=== PATIENT | male | born 1955 | race Caucasian/White ===

== ENCOUNTER 2023-10-22 14:25 | Inpatient (IN) | payer MEDICARE, OTHER, SELFPAY ==
[2023-10-22] VITALS (41 sets, daily range): BP systolic 100–152; BP diastolic 68–95; BMI 32.0
[2023-10-22 12:57] LABS: Glucose - Point of Care 132 mg/dl (70-99)
--- NOTE | 2023-10-22 13:10 | ED.GENMED ---
History of Present Illness
General
Chief Complaint: Extremity Pain (non-traumatic)
Source: patient and spouse
Exam Limitations: none
Time Seen by Provider: 10/22/23 13:03
Nursing documentation reviewed up to this point in time: agreed with
Travel History
Have you had any contact with someone who has COVID-19?: No
Do you have any symptoms of coronavirus? Fever > 100 degrees, chills, cough, shortness of breath, sore throat, loss of taste or smell, muscle aches, or headache?: No
History of Present Illness
History of Present Illness:
68-year-old male presents emergency department complaining of right arm heaviness, and difficulty coordinating his right arm that began at 11:45 AM today.
If applicable-neuro sx onset
Onset of symptoms known: Yes
Date of onset of symptoms: 10/22/23
Past History
Past History
ED Past Medical History: HTN, Hypercholesterolemia, Other (JUANITA) and Other (migraines)
Social History
Tobacco: Non-smoker
Personal:
Living: with family
Employment: Employed
Review of Systems
Review of Systems
Allergies reviewed?: Yes
All Other Systems: Not applicable
Constitutional: Reports no symptoms
EENT: Reports no symptoms
Respiratory: Reports no symptoms
Cardiac: Reports no symptoms
ABD/GI: Reports no symptoms
: Reports no symptoms
Musculoskeletal: Reports no symptoms
Skin: Reports no symptoms
Neurological: Reports weakness
Endocrine: Reports no symptoms
Hematologic/Lymphatic: Reports no symptoms
Psychiatric: Reports no symptoms
Phy Exam
Physical Exam
Physical Exam:
Physical Exam
General: no apparent distress, not acutely ill
Neck: supple. no meningeal signs. normal posterior pharynx
Heart: s1/s2 regular rate and rhythm, no murmur. equal radial
pulses.
HEENT: Pupils equal round reactive to light, EOMI
Lungs: no acute respiratory distress. clear bilaterally
Abdomen: normal bowel sounds. not tender. no CVAT
Neuro: alert and oriented. Right arm weakness, 4 out of 5 muscle strength. Cranial nerves II through XII intact
Skin: no rash
Psychiatric: well kept. interactive and cooperative
Extremities: no edema. no calf tenderness. negative homans. good distal pulses
Scores
NIH Stroke Score
Level of Consciousness: 0 - Alert
LOC Questions: 0-Answers both correctly
LOC Commands: 0-Performs both correctly
Best Horizontal Gaze: 0-Normal
Visual Peterson: 0=Normal, no visual loss
Facial Palsy: 0=Normal, symmetrical
Motor - Right Arm: 1=Drift < 10 seconds
Motor - Left Arm: 0=No drift 10 seconds
Motor - Right Le-No drift 5 seconds
Motor - Left Le-No drift 5 seconds
Limb Ataxia: 0-Absent
Sensation: 0-Normal
Best Language: 0-No aphasia
Dysarthria: 0-Normal
Extinction and Inattention: 0-No abnormality
Total Score:: 1
Course
Orders/Labs/Results
Orders:
Orders
10/22/23 13:05
CT Head W/o Cont STROKE ALERT Urgent
Reason For Exam: right arm heaviness
10/22/23 13:08
Cardiac Monitoring- Treatment ONCE
IV Insert/Care/Rem.- Treatment PRN
10/22/23 13:10
Electrocardiogram (*1) Stat
Reason for Study: Other
Other Reason for Exam: neuro symptoms
EKG- Treatment ONCE
10/22/23 13:11
CT Head/Neck Ang STROKE ALERT Urgent
Comment:
Reason For Exam: right arm weakness
10/22/23 13:27
Complete Blood Count/With Diff Urgent
Comprehensive Metabolic Panel Urgent
PTT Urgent
Prothrombin Time Urgent
10/22/23 13:41
Tenecteplase [Tnkase] 25 mg Syringe [Syringe Non-Pump] 0 ml IV NOW
Provider explained risk/benefits to patient &/or caregiver?: Yes
Blood pressure: 138/84
10/22/23 13:43
Tenecteplase [Tnkase] 25 mg Syringe [Syringe Non-Pump] 0 ml IV NOW
Abnormal Lab Results
10/22/23 10/22/23
12:56 13:27
BUN 24 H mg/dl
(9-20)
Glucose 126 H mg/dl
(70-99)
POC Glucose 132 H mg/dl
(70-99)
10/22/23 13:27
10/22/23 13:27
Vital Signs
Initial and Last Documented VS:
Initial Vital Signs
Temp Pulse Resp BP Pulse Ox
97.8 F 68 16 152/85 97
10/22/23 12:55 10/22/23 12:55 10/22/23 12:55 10/22/23 12:55 10/22/23 12:55
Last Documented Vital Signs
Temp Pulse Resp BP Pulse Ox
97.8 F 74 15 138/84 99
10/22/23 12:55 10/22/23 13:32 10/22/23 13:32 10/22/23 13:32 10/22/23 13:32
MDM/Problems Addressed
Differential Diagnosis Includes:
Intracranial hemorrhage, CVA
MDM/Problems Addressed:
68-year-old male with acute CVA, TNK ordered.
Chronic conditions affecting care: Other (Migraines)
Acute Exacerbation and/or Progression of Chronic Illness: Other (Migraines)
*Radiology
Radiology exam reviewed: radiology read reviewed (CT head no acute findings, cta nad)
*Pulse Oximetry
Patient hypoxic: no
*EKG
Interpreted by ED Provider?: Yes
EKG Intrepretation Date: 10/22/23
EKG Intrepretation Time: 07:18
Interpretation: abnormal
Comparison EKG: changes noted
Heart Rate: 71
Rate: normal
Rhythm: sinus
[place]: normal axis
Interval: normal interval
QRS Pattern: normal QRS
Ischemia: non-specific ST changes
*Nuclear Monitoring Technician Interpretation
Rate: normal
Interpretation: normal
Heart Rate: 70
Rhythm: sinus
*Critical Care Note
Total Time (30-74mins, 75-104mins- exclusive of procedures): 30
comment:
Critical care statement: A total of 30 minutes of critical care time was provided for this patient. This includes management of unstable vital signs, evaluation of the patient at bedside, reviewing the patient's pertinent medical records, discussion
with consultants, review of old EKGs and review of pertinent medical records. This time with separate from time utilized to perform the aforementioned documented procedures
Patient Management
Social determinants of health affecting care: Living situation
Discussion with other providers: Hospitalist and [employer] (neurology)
Escalation/DeEscalation of care consider admission/obs:
admit to ICU indicated
ED Attending Note
-
Portions of this chart may have been created with voice recognition software.� Occasional wrong word or��sound alike� substitutions may have occurred due to the inherent limitations of voice recognition software.
Discharge Plan
Departure
Patient Disposition: Admit
Date of Disposition: 10/22/23
Time of Disposition: 13:43
Admit to: ICU
Presentation/result/management discussed w/ accepting MD/DO: Hospitalist
Patient with high blood pressure during this ER visit?: Yes
Condition: Good
Discharge Problem:
Acute cerebrovascular accident (CVA)
Prescriptions:
No Action
multivitamin 1 EACH tablet
1 ea PO DAILY
levothyroxine 75 MCG tablet
75 mcg PO DAILY
pravastatin 10 MG tablet
10 mg PO DAILY
aspirin 81 MG tablet,chewable
81 mg PO DAILY
amlodipine-valsartan [Exforge] 1 EACH tablet
1 tab PO DAILY
bihkeqdgpzb-Q0-Wvqjxcfay serr [Osteo Bi-Flex (5-Loxin)] 1 EACH tablet
1 ea PO BID
Interventions
Interventions:
*Risk Screen - Suicide Last Done: 10/22/23 13:36
*General Assessment Last Done: 10/22/23 13:36
*Neglect/Abuse Screening Last Done: 10/22/23 13:36
*ED COVID-19 Vaccine History Last Done: 10/22/23 12:55
ED-Musculoskeletal Assessment Last Done: 10/22/23 13:36
ED-Peripheral Vascular Assessment Last Done: 10/22/23 13:39
ED-Skin Assessment Last Done: 10/22/23 13:36
--- NOTE | 2023-10-22 13:15 | CON.NEURO4 ---
Consultation - Neurology 4
-
CONSULTING PHYSICIAN: Carlos
REFERRING PHYSICIAN: Andrae
DICTATED BY: Carlos
DATE/TIME OF REQUEST: 10/22/23 1303
DATE/TIME OF CONSULTATION: 10/22/23 1311
Reason for Consultation: stroke alert
History of Present Illness:
68-year-old male recently retired from [employer] with a past medical history of hypertension anemia, JUANITA, migraine and peripheral neuropathy who presented as a stroke code after abrupt onset of right upper extremity heaviness at 1115 this
morning. He had been making coffee prior to the event and felt fine. Suddenly his right arm felt heavy and when he sat down to use his computer he was unable to type with his right hand. He feels that the dexterity in his right hand is off. He
denies any neck pain. No trauma to his neck. No clear events that would cause nerve compression prior to this. No prior history of stroke. Does have significant vascular risk factors in the form of hypertension, hyperlipidemia and JUANITA. He takes
aspirin usually but did not take his dose this morning. In the ED prior to my arrival he had right upper extremity drift which had resolved when I examined him and CAT scan. However, he continues to have significant issues with dexterity/right
upper extremity ataxia. He is right-handed and this is disabling. He was unable to type on a keyboard at bedside. He is agreeable with infusion of TNK. CTA showed no evidence of any large vessel occlusion for IAT. Clarified there is no h/o R
parietal lobe mass--listed in differential on HCT done in 2018 but clarified on MRI brain (11/13/17) that this was instead 'extensive nonenhancing white matter disease.� No evidence of acute infarct. No mass effect.� No abnormal enhancement.'
He states that he recently saw his eye doctor and discussed that he has had events consisting of strobe like changes in his vision in the bottom half of each eye recently concerning for possible aura with migraine. He denies any vision changes,
aura or migraine currently.
Past Medical History: htn, HLD, JUANITA,� migraines�with recent addition of visual aura, mild axonal sensory peripheral neuropathy per EMG done on 04/17/21
Family History:� noncontributory
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
Allergies
atorvastatin [From Lipitor] Allergy (Verified 11/12/17 12:20)
ELEVATED CPK LEVELS
simvastatin [From Zocor] Allergy (Verified 11/12/17 12:20)
ELEVATED CPK LEVELS
Sdaoyen-JOD-OuQ Reductase Inhibitor [Xwtzjpt-Ipk-Xjt Reductase Inhibitor] Allergy (Verified 11/12/17 12:20)
ELEVATED CPK LEVELS
Home Medications Table - record
Medication Instructions Recorded Confirmed
amlodipine 10 mg-valsartan 320 mg 1 tab PO DAILY 11/12/17 10/22/23
tablet (Exforge)
aspirin 81 mg chewable tablet 81 mg PO DAILY 11/12/17 10/22/23
glucosamine GBn-L1-Elkytpuwr 1 ea PO BID 11/12/17 10/22/23
mckenzie 1,500 mg-400 unit-100 mg
tablet (Osteo Bi-Flex (5-Loxin))
levothyroxine 75 mcg tablet 75 mcg PO DAILY 11/12/17 10/22/23
multivitamin 1 ea PO DAILY 11/12/17 10/22/23
pravastatin 10 mg tablet 10 mg PO DAILY 11/12/17 10/22/23
Review of Symptoms:
Patient denies any fever, headache, chest pain, shortness of breath, GI or symptoms.
�Per the HPI.�All systems are reviewed negative except above.
Vital Signs
Temp Pulse Resp BP Pulse Ox
97.8 F 68 16 152/85 97
10/22/23 12:55 10/22/23 12:55 10/22/23 12:55 10/22/23 12:55 10/22/23 12:55
Physical Exam:
The patient is afebrile, heart sounds S1 and S2 are regular, and chest is clear to auscultation bilaterally.
NIH Stroke Scale:
I performed the NIH stroke scale on the patient on 10/22/23 at 1315. The patient scored 1 points on the NIH stroke scale assessment, which were assigned as follows: 1 for ataxia in RUE
Neurologic Examination:
The patient is awake, alert and oriented x 3. He is able to follow commands and answer questions appropriately. There is no aphasia or dysarthria. On cranial nerve assessment, pupils are 3 mm bilateral, round and reactive to light and
accommodation. Visual steve are full. Extraocular movements are intact. Facial sensations are intact and bilaterally symmetrical, there is no facial asymmetry. Hearing is intact bilaterally to normal conversation volume. Tongue palate and uvula
are midline. Sternocleidomastoid strengths are full bilaterally. Motor strengths are 5/5 bilateral upper and lower extremities on medical research Tichnor scale. There is no drift or involuntary movement noted. Deep tendon reflexes are 2+ bilateral
upper and lower extremities and Babinski is absent bilaterally. Sensations of touch, temperature are intact and bilaterally symmetrical. There was no extinction noted on double simultaneous stimulation. Had significant impairment with rapid
alternating movements in the R hand only; +R hand ataxia. Unable to type on keyboard at bedside with right hand. No impairment in L hand. Heel to zayas intact in BLE.
Neuro Imaging:
HCT:
1. � Stable exam. No acute intracranial process.
2. � Mild volume loss. Mild to moderate leukoaraiosis.
CTA head/neck:
negative for any LVO
NECK CTA:
No dissection. No significant stenosis.
HEAD CTA:
No aneurysm. No filling defect or significant stenosis.
CUS from 12/18/19:
�
RIGHT CAROTID: No hemodynamically significant stenosis greater than 50%.
LEFT CAROTID: No hemodynamically significant stenosis greater than 50%.
Echo (11/09/22):
�Normal biventricular size and systolic function without regional wall motion
�abnormality.
�No significant valvular disease.
�Mildly dilated ascending aorta (3.8cm). No clear cardiac source for emboli.
Impression:
YANN WEBBER is a 68 year old M who has presented to the hospital with abrupt onset of R arm heaviness and diminished dexterity in the R hand that interferes with his ability to type. He initially had RUE drift which has resolved. He
continues to have diminished dexterity in his R hand. His symptoms are disabling, particularly as he is right handed.
Differentials for the patient's presentation include:
1. small L hemispheric acute ischemic stroke
2. spinal/peripheral nerve etiology/compression seems less likely given abrupt onset, lack of clear predisposing factors
3. complicated migraine; does have a history of migraine with visual aura but has never had other focal symptoms associated; currently denies any headache
Patient has the following risk factors for their symptoms: htn, HLD, JUANITA,� migraines, age
IV Tenecteplase/IAT candidacy: giving TNK, CTA negative for any LVO for IAT
Recommendations:
�-IV TNK administered per protocol. Risks discussed at length with patient and his at bedside and they are in agreement to give it.
- Patient admitted to medical ICU after IV TNK administration for frequent neuro checks and vital signs per protocol.
- The goal blood pressure for the first 24 hours s/p TNK administration is less than 180/105 mmHg.� After this time, goal is normotension.
-� MRI of the brain within 22-32 hours of TNK without contrast for localization of the stroke.�
- CTA head/neck--no LVO.
- Please hold all antiplatelets for the first 24 hours s/p TNK. Patient's ASA can be resumed if MRI brain shows no hemorrhagic conversion
- Check hemoglobin A1C.�Goal blood glucose levels are less than 180 mg/dL.
- Continue pravastatin; has other statins listede as an allergy.� Check LDL.� Goal LDL after stroke is <70.
- Check an echocardiogram.
- Please check a noncontrast CT scan of the head 24 hours after TNK administration for a possible hemorrhagic conversion of the stroke/ICH.� This does not need to be done if MRI brain can be timed for this time period.
- Speech language pathology and rehabilitations evaluations today, PT/OT evaluations in 24 hours post TNK administration. OK for out of bed to commode or chair with assistance prior to 24 hours.�
- DVT prophylaxis only with sequential compression devices over the 24 hours after TNK administration. Patient can be started on Lovenox subcutaneous for DVT prophylaxis after the 24 hour qi.
- Rest of the management per the primary team
Discussed patient care with: patient, patient's , nursing, Dr. Abebe
Critical care time 70 minutes
[2023-10-22 13:37] LABS: % Basophils 0.9 % (0-2); % Eosinophils 3.2 % (0-6); % Immature Granulocytes 0.1 % (0-0.5); % Lymphocytes 35.6 % (20.5-51.1); % Monocytes 8.4 % (1.7-9.3); % Neutrophils 51.8 % (42.2-75.2); Absolute Basophils 0.1 10^3/uL (0-0.2); Absolute Eosinophils 0.2 10^3/uL (0-0.7); Absolute Lymphocytes 2.6 10^3/uL (1.2-3.4); Absolute Monocytes 0.6 10^3/uL (0.1-0.6); Absolute Neutrophils 3.8 10^3/uL (1.4-6.5); Hematocrit 43.4 % (39.0-52.0); Mean Corp Hgb Conc. 34.6 g/dL (33.0-37.0); Mean Corpuscular Hgb 28.8 pg (27.0-31.0); Mean Corpuscular Volume 83.5 fL (80.0-94.0); Mean Platelet Volume 9.9 fL (7.4-10.4); Nucleated Red Blood Cells % 0 % (-); Platelet Count 240 10^3/uL (130-400); Red Cell Dist. Width 13.6 % (11.5-14.5); White Blood Cell Count 7.4 10^3/uL (4.8-10.8)
[2023-10-22 13:48] LABS: APTT 28.3 Sec (23.4-35.0)
[2023-10-22 13:49] LABS: ALT (SGPT) 24 U/L (0-50); AST (SGOT) 23 U/L (17-59); Albumin 4.1 g/dl (3.5-5.0); Alkaline Phosphatase 62 U/L (38-126); Blood Urea Nitrogen 24 mg/dl (9-20); Calcium 9.8 mg/dl (8.4-10.2); Carbon Dioxide 25 mmol/L (22-30); Chloride 105 mmol/L (98-107); Estimated Creatinine Clearance 109 ml/min; Glucose 126 mg/dl (70-99); Sodium 142 mmol/L (135-145); Total Bilirubin 0.5 mg/dl (0.2-1.3); Total Protein 6.8 g/dl (6.3-8.2); eGFR > 60.00
[2023-10-22] MEDS: TNKASE 5 MG IV (13:50)
--- NOTE | 2023-10-22 13:52 | HPS.HSE ---
Family Physician
-
Family Physician:
Chief Complaint
-
R arm weakness
History of Present Illness
HPI: 68-year-old male, PMH HTN, HLD, JUANITA on CPAP, migraines; p/w right arm heaviness/weakness and difficulty with coordination that started acutely at 11:45 AM on DOA.
Medical History
Past Medical History
Past Medical History: Reports Other
Additional Past Medical History:
HTN
HLD
JUANITA on CPAP
migraines
Past Surgical History: Reports Other
Additional Past Surgical History:
Distant history of left inguinal hernia surgery
Social History
Tobacco: Non-smoker
Alcohol: Occasional
Personal:
Living: With Family
Family History
Family History: Not pertinent
Allergies / Home Medications
Allergies reflects when Allergies were last updated in [facility].
Home Medications with original date entered in [facility]
Allergy/Medication List:
Allergies
Allergy/AdvReac Type Severity Reaction Status Date / Time
atorvastatin [From Lipitor] Allergy ELEVATED Verified 11/12/17 12:20
CPK LEVELS
simvastatin [From Zocor] Allergy ELEVATED Verified 11/12/17 12:20
CPK LEVELS
Gxutyoy-IQL-EsI Reductase Allergy ELEVATED Verified 11/12/17 12:20
Inhibitor CPK LEVELS
[Zlduybk-Abn-Kgp Reductase
Inhibitor]
Home Medications
amlodipine 10 mg-valsartan 320 mg tablet (Exforge) 1 tab PO DAILY 11/12/17
aspirin 81 mg chewable tablet 81 mg PO DAILY 11/12/17
glucosamine LJz-I4-Goqikjfcb mckenzie 1,500 mg-400 unit-100 mg tablet (Osteo Bi-Flex (5-Loxin)) 1 ea PO BID 11/12/17
levothyroxine 75 mcg tablet 75 mcg PO DAILY 11/12/17
multivitamin 1 ea PO DAILY 11/12/17
pravastatin 10 mg tablet 10 mg PO DAILY 11/12/17
Review of Systems
-
Neurological: Reports See HPI and Weakness (R arm); Denies Headache
Physical Exam
Vital Signs
Vital Signs
Temp Pulse Resp BP Pulse Ox
36.6 C 74 15 138/84 99
10/22/23 12:55 10/22/23 13:32 10/22/23 13:32 10/22/23 13:32 10/22/23 13:32
Physical Exam
General: Well Developed, Well Nourished, No Apparent Distress, Comfortable and Conversant
HEENT: NormoCephalic, Moist mucous membranes, Atraumatic, Nose Appears Normal and Ears Appear Normal
Respiratory: Clear and Non Labored Respirations; No Accessory Resp Muscle Use
Cardiac: S1/S2 and Regular Rhythm; No Murmur or Rub
GI: Soft, Non Tender, Non Distended and Normal Bowel Sounds; No Organomegaly
Rectal: Deferred by Provider
Musculoskeletal: No Clubbing, No Cyanosis and No Edema
Skin: No Rash
Neuro: Awake, Alert and Other (R arm weakness); No Slurred Speech or Facial Droop
Psych: Calm and Intact Judgment/Insight
Laboratory Results
-
10/22/23 13:27
10/22/23 13:
Laboratory Results
PT 13.0 Sec (11.4-14.6) 10/22/23 13:27
INR 1.00 10/22/23 13:
APTT 28.3 Sec (23.4-35.0) 10/22/23 13:27
Total Bilirubin 0.5 mg/dl (0.2-1.3) 10/22/23 13:27
AST 23 U/L (17-59) 10/22/23 13:27
ALT 24 U/L (0-50) 10/22/23 13:27
Alkaline Phosphatase 62 U/L (38-126) 10/22/23 13:27
Data Reviewed
-
CT Scan: Report Reviewed by me
Lab Data: Labs Reviewed by me
Impression/Plan
-
HPI: 68-year-old male, PMH HTN, HLD, JUANITA on CPAP, migraines; p/w right arm heaviness/weakness and difficulty with coordination that started acutely at 11:45 AM on DOA.
He denies to
He received TNK in the emergency room, and admitted to ICU for acute stroke workup.
A/P:
# R arm heaviness, admitted for acute stroke work up
CT head No acute intracranial process.
CT head/neck Angio WNL , no dissection, no stenosis.
s/p TNK in ED,
follow up MRI brain
No ASA/Plavix or OAC
Check A1C and lipid panel
Monitor in ICU
Neuro on board
# HTN
allow permissive HTN for now
# Hypercholesterolemia
follow lipid panel
# JUANITA
cont BUTTERMILK DRIER OPERATOR CPAP machine
# migraines
stable
DVT ppx: SCD
FC
--- NOTE | 2023-10-22 13:53 | CON.INTV ---
Consultation
Consultation Request
Date/Time Consultation Requested: 10/22/2023-2 PM
Date/Time Consultation Performed: 10/22/2023-3 PM
Requesting Provider: Hospitalist
Performing Provider: Dr. Ziegler
Reason for Consultation: CVA
Medical History
-
Chief Complaint: Right arm heaviness
History of Present Illness:
68-year-old male with a history of hypertension, hyperlipidemia, migraines, as well as obstructive sleep apnea who presented with right arm heaviness felt to have acute CVA and received TNK-entry specialists consulted for post TNK/critical care management
10/22/2023. He states that he woke up this morning and was feeling fine making coffee and then had right hand weakness and could not hold a cup. This prompted him to come to the emergency room. He did not have any dysarthria, right leg weakness.
Overall his hand strength is actually improved in the right upper extremity. Denies any shortness of breath, chest pain, chest tightness, wheezing, mucus production, abdominal pain, nausea, weakness in his lower extremities. He uses a CPAP nightly
with oxygen.
Past Medical History
Past Medical History: None (Severe JUANITA on CPAP 7 cm with 2 L O2. GERD. Hypothyroid. Hypertension. Hyperlipidemia. Diverticulosis. Vitamin D deficiency. Positive PPD. Jana's thyroiditis. Migraines. Carotid atherosclerosis. Right renal
mass. Left inguinal hernia repair-1974.)
Social History
Tobacco: Non-smoker
Alcohol: Occasional
Drug: None
Personal:
Living: With Family
Occupational Exposures: History of positive PPD
Environmental Exposures: No known asbestos exposure
Family History
Family History: Other (Father-Alzheimer's, prostate cancer and hypertension. Mother-breast cancer)
Allergies / Home Medications
Allergies
Allergy/AdvReac Type Severity Reaction Status Date / Time
atorvastatin [From Lipitor] Allergy ELEVATED Verified 11/12/17 12:20
CPK LEVELS
simvastatin [From Zocor] Allergy ELEVATED Verified 11/12/17 12:20
CPK LEVELS
Yhobpcg-YSY-HqV Reductase Allergy ELEVATED Verified 11/12/17 12:20
Inhibitor CPK LEVELS
[Eabtazn-Mkh-Tcd Reductase
Inhibitor]
Home Medications
Medication Instructions Recorded Confirmed Last Taken Type
amlodipine 10 mg-valsartan 320 mg 1 tab PO DAILY 11/12/17 10/22/23 Unknown History
tablet (Exforge)
aspirin 81 mg chewable tablet 81 mg PO DAILY 11/12/17 10/22/23 Unknown History
glucosamine EYy-T8-Gxecviukc 1 ea PO BID 11/12/17 10/22/23 Unknown History
mckenzie 1,500 mg-400 unit-100 mg
tablet (Osteo Bi-Flex (5-Loxin))
levothyroxine 75 mcg tablet 75 mcg PO DAILY 11/12/17 10/22/23 Unknown History
multivitamin 1 ea PO DAILY 11/12/17 10/22/23 Unknown History
pravastatin 10 mg tablet 10 mg PO DAILY 11/12/17 10/22/23 Unknown History
Review of Systems
-
Unable to Obtain full review of systems at this time due to: Other (Per HPI)
Vitals / Labs / Diagnostic Testing
Vital Signs
Temp Pulse Resp BP Pulse Ox
97.8 F 74 15 138/84 99
10/22/23 12:55 10/22/23 13:32 10/22/23 13:32 10/22/23 13:32 10/22/23 13:32
Lab Data
10/22/23 13:27
10/22/23 13:27
Laboratory Results
10/22/23
13:27
PT 13.0
INR 1.00
APTT 28.3
Diagnostic Testing:
Physical Exam
-
Exam:
Well-nourished and well-developed in no apparent distress
HEENT-atraumatic, normocephalic
Neck-supple, no JVD, no bruit
Heart-regular rate and rhythm-no murmurs, rubs or gallops
Chest-clear to auscultation, no wheezes, crackles
Back-no tenderness
Abdomen-soft, nontender, nondistended, no hepatosplenomegaly
Extremities-no cyanosis, clubbing, edema and good peripheral pulses
Integument-intact, no rashes, lesions or ecchymosis
Neurologically alert and oriented some left-sided arm weakness
Assessment
-
68-year-old male with a history of hypertension, hyperlipidemia, migraines, as well as obstructive sleep apnea who presented with right arm heaviness felt to have acute CVA and received TNK-entry specialists consulted for post TNK/critical care management
10/22/2023.
Assessment
Acute CVA status post TNK
Mild hyperglycemia
Conditions present prior to admission:
Obstructive sleep [id number], desaturation aguila 77%, CPAP 7 cm with 2 L oxygen-also takes Nuvigil 150 mg daily
Nocturnal hypoxemia
Insomnia
Pulmonary nodule-3 mm-incidentally noted left lower lobe 08/15/2023
Hypertension
GERD
Diverticulosis
Vitamin D deficiency
Positive PPD
History of Jana's thyroiditis
Migraines
History of right renal mass
Plan
Admit patient to medical intensive care unit
Supplemental oxygen to maintain saturation greater than 92%
Aspiration precautions
Neurology evaluation
Monitor blood pressure closely-goal SBP < 180, DBP < 105
Neuro checks per protocol
Follow CT head
MRI head/MRA head and neck in next 24 hours
Hold antiplatelet therapy �24 hours
Check lipid panel
Check echocardiogram
Check A1c
Carotid circulation evaluation
Atorvostatin 80 mg daily if tolerated
Monitor blood sugar-insulin as needed-goal blood sugar 140-180
DVT prophylaxis-sequential for 24 hours and then Lovenox
Speech therapy/occupational therapy/physical therapy evaluation
Patient last seen pulmonary/sleep disorders office-Ghazala Rizo NP 08/01/2023-on CPAP-7 cm with 2 L oxygen-compliant as well as Nuvigil 150 mg daily
Patient has pulmonary nodule incidentally noted-3 mm left lower lobe-will need repeat CT chest August 2024
Critical care statement: A total of 50 minutes of critical care time was provided for this patient today. This includes management of unstable vital signs, evaluation of the patient at bedside, reviewing the patient's pertinent medical records
including radiographs, microbiology, laboratory evaluations, and discussion with primary team, consultants, pharmacy, nutrition, physical therapy, case management, charge nurse, critical care nursing, and respiratory therapy.
Diagnostic data:
CT chest 09/03-none aneurysmal thoracic aorta, 3.1 mm nodule left lower lobe
CT head 10/22/2023-no intracranial process, mild volume loss
CT head and neck angiogram 10/22/2023-no dissection, no significant stenosis, no aneurysms, no filling defects
Brain MRI 11/27-extensive nonenhancing white matter disease differentials include demyelinating diseases, vasculitis and Lyme disease, no evidence for acute infarct
Sleep study with oral appliance [id number]-[id number], desaturation aguila 80%,
Sleep study [id number], desaturation aguila 77%, CPAP 7 cm with 2 L oxygen
Data Reviewed
-
EKG: Report reviewed by me
Radiology: Report reviewed by me
CT Scan: Report reviewed by me
Medical Tests (Nuc Med, Echo etc): Report reviewed by me
Labs: Labs reviewed by me
Old Records: Reviewed
Critical Care Time (in minutes): 50
[2023-10-22 14:18] LABS: HDL Cholesterol 46 mg/dl; LDL Cholesterol, Calculated 102 mg/dl; Total Cholesterol 174 mg/dl (50-199); Triglyceride 131 mg/dl (10-149); Very Low Density Lipoprotein 26 mg/dl (0-30)
--- NOTE | 2023-10-22 17:20 | PTCARENOTE ---
patient received from ED@1610. assessments per work list. hand off NIH completed. mild ataxia and right hand weakness present, per patient and ED RN is improved since TNK administered. no other defecits. oriented to room and plan of care, passed
swallow evaluation. diet ordered. monitor nsr, lungs clear on room air. declines need to void, urinal, call ayala at bedside in reach. reviewed plan of care, ongoing neuro assessments. patient and spouse verbalize understanding
--- NOTE | 2023-10-22 20:00 | PTCARENOTE ---
NIH completed with off going shift, no change in previous assessment. NIH 1, with fine motor weakness on RUE and ataxia. GCS 15, pleasant, PERRLA 2, GIRON 5/5. Afebrile, NSR on monitor. BP stable. IV lines flushed/patent/capped. Pulses palpable, no
edema. Room air, order noted for home CPAP. RT made aware. Equipment at bedside. Tolerating diet. Voids in urinal. Will monitor.
[2023-10-23] VITALS (27 sets, daily range): BP systolic 92–133; BP diastolic 56–93; BMI 32.0
--- NOTE | 2023-10-23 00:05 | PTCARENOTE ---
Pt using home CPAP without issue. Order noted. Will monitor.
--- NOTE | 2023-10-23 05:35 | PTCARENOTE ---
Neuro checks as ordered. No change in previous assessment. Resting comfortably on home CPAP. Labs pending. Will monitor.
[2023-10-23 05:44] LABS: Hematocrit 41.6 % (39.0-52.0); Hemoglobin 13.9 g/dL (13.0-18.0); Mean Corp Hgb Conc. 33.4 g/dL (33.0-37.0); Mean Corpuscular Hgb 28.5 pg (27.0-31.0); Mean Corpuscular Volume 85.2 fL (80.0-94.0); Platelet Count 221 10^3/uL (130-400); Red Blood Cell Count 4.88 10^6/uL (4.70-6.10); Red Cell Dist. Width 13.3 % (11.5-14.5); White Blood Cell Count 8.6 10^3/uL (4.8-10.8)
[2023-10-23 05:46] LABS: INR 1.09; PT 13.9 Sec (11.4-14.6)
[2023-10-23 05:47] LABS: APTT 29.4 Sec (23.4-35.0)
[2023-10-23 06:07] LABS: Blood Urea Nitrogen 22 mg/dl (9-20); Calcium 8.9 mg/dl (8.4-10.2); Carbon Dioxide 27 mmol/L (22-30); Chloride 105 mmol/L (98-107); Estimated Creatinine Clearance 95 ml/min; Glucose 128 mg/dl (70-99); HDL Cholesterol 37 mg/dl; LDL Cholesterol, Calculated 85 mg/dl; Potassium 3.9 mmol/L (3.5-5.1); Sodium 139 mmol/L (135-145); Total Cholesterol 159 mg/dl (50-199); Triglyceride 186 mg/dl (10-149); Very Low Density Lipoprotein 37 mg/dl (0-30); eGFR > 60.00
--- NOTE | 2023-10-23 07:32 | W.PN.INTV ---
Today's Communication / Plan
Recommendations
Neurochecks
Brain MRI
If stable transfer out of ICU-call pulmonary if respiratory issues arise
Assessment
-
68-year-old male with a history of hypertension, hyperlipidemia, migraines, as well as obstructive sleep apnea who presented with right arm heaviness felt to have acute CVA and received TNK-heading and priming tool setter consulted for post TNK/critical care management
10/22/2023.
Assessment
Acute CVA status post TNK
Mild hyperglycemia
Conditions present prior to admission:
Obstructive sleep [id number]-[id number]-[id number]-57, desaturation aguila 77%, CPAP 7 cm with 2 L oxygen-also takes Nuvigil 150 mg daily
Nocturnal hypoxemia
Insomnia
Pulmonary nodule-3 mm-incidentally noted left lower lobe 08/15/2023
Hypertension
GERD
Diverticulosis
Vitamin D deficiency
Positive PPD
History of Jana's thyroiditis
Migraines
History of right renal mass
Plan
Patient's neurologic status has improved slightly-clearly no worse
Supplemental oxygen to maintain saturation greater than 92%
Aspiration precautions
Neurology evaluation ongoing
Monitor blood pressure closely-goal SBP < 180, DBP < 105
Continue with neurochecks
Brain MRI-10/23/2023-pending
Hold antiplatelet therapy for the first 24 hours
Lipid panel-elevated triglycerides, LDL 85
Echocardiogram-pending
A1c-6.6%
Carotid circulation evaluation
Statins
Monitor blood sugar-insulin as needed-goal blood sugar 140-180
DVT prophylaxis-sequential for 24 hours and then Lovenox
Speech therapy/occupational therapy/physical therapy evaluation
Patient last seen pulmonary/sleep disorders office-Ghazala Rizo NP 08/01/2023-on CPAP-7 cm with 2 L oxygen-compliant as well as Nuvigil 150 mg daily
Patient has pulmonary nodule incidentally noted-3 mm left lower lobe-will need repeat CT chest August 2024
The patient remains neurovascularly intact after 24 hours-transfer out of ICU to telemetry-call pulmonary if respiratory issues arise
Reviewed the patient's pertinent medical records including radiographs, microbiology, laboratory evaluations, and discussion with primary team, consultants, pharmacy, nutrition, physical therapy, case management, charge nurse, critical care
nursing, and respiratory therapy.
Diagnostic data:
CT chest 09/03-none aneurysmal thoracic aorta, 3.1 mm nodule left lower lobe
CT head 10/22/2023-no intracranial process, mild volume loss
CT head and neck angiogram 10/22/2023-no dissection, no significant stenosis, no aneurysms, no filling defects
Brain MRI 11/27-extensive nonenhancing white matter disease differentials include demyelinating diseases, vasculitis and Lyme disease, no evidence for acute infarct
Sleep study with oral appliance [id number], desaturation aguila 80%,
Sleep study [id number], desaturation aguila 77%, CPAP 7 cm with 2 L oxygen
Subjective Dataa
Subjective Data
Date of Service:
Date of Service: October 23, 2023
Chief Complaint: Pediatrics Hospitalist Follow Up and Other (CVA)
Subjective:
Feels better, still has some right hand weakness, difficulties holding cup and writing, no complaints of shortness of breath, chest pain or abdominal pain
Review of Systems
General: Other (Per HPI)
Objective Data
Data Reviewed
Vital Signs / I&O / Oxygen:
Vital Signs
Temp Pulse Resp BP Pulse Ox
98.2 F 59 10 112/75 95
10/23/23 04:30 10/23/23 07:15 10/23/23 07:15 10/23/23 07:14 10/23/23 07:15
Intake and Output
10/22/23 10/23/23 10/24/23
06:59 06:59 06:59
Intake Total 540 / 540
Output Total 900 / 900
Balance -360 / -360
SaO2 95
Physical Exam
General: Respiratory Distress and Comfortable
HEENT: Normocephalic, Anicteric and Moist Mucous Membranes
Cardiovascular: Regular Rhythm
Respiratory: Wheeze (n), Crackles (n), Non-Labored Respirations and Accessory Resp Muscle Use (n)
GI: Soft, Non Distended and Non Tender
Neurology: Awake, Alert and No Motor Deficits
Skin: Warm, Good Color, Cyanosis (n) and Jaundice (n)
Labs/Micro/Reports
Lab Data
10/23/23 05:20
10/23/23 05:20
Laboratory Results
10/22/23 10/23/23
13:27 05:20
PT 13.0 13.9
INR 1.00 1.09
APTT 28.3 29.4
--- NOTE | 2023-10-23 08:00 | PTCARENOTE ---
Received pt from previous shift. Assessment performed, see flowsheets. NIHSS performed with previous RN. NIHSS= 1 for R limb ataxia. Pt comfortable with no new complaints at this time. 1st degree heart block, SB to NSR on heart monitor. CPAP HS and
RA during the day. LAC #18 and L hand #[address] Plan is for MRI today. Will continue to monitor.
[2023-10-23] MEDS: SYNTHROID 75 MCG PO (08:05)
--- NOTE | 2023-10-23 08:14 | W.PN.HOSP.TC ---
Today's Communication/Plan
-
see A/P
Assessment / Plan
Assessment / Plan
HPI: 68-year-old male, PMH HTN, HLD, JUANITA on CPAP, migraines; p/w right arm heaviness/weakness and difficulty with coordination that started acutely at 11:45 AM on DOA.
He denies to
He received TNK in the emergency room, and admitted to ICU for acute stroke workup.
A/P:
# R arm heaviness, admitted for acute stroke work up
CT head No acute intracranial process.
CT head/neck Angio WNL , no dissection, no stenosis.
s/p TNK in ED,
follow up MRI brain
No ASA/Plavix or OAC for first 24 hours
Follow A1C
LDL at 85, cont PODIAT[employer]IC [employer]OT [employer] SPECIALIST pravastatin
Monitor in ICU
Neuro on board
PT OT eval
# HTN
allow permissive HTN for the first 24 hours
# Hypercholesterolemia
LDL at 85, cont P[employer] SPECIALIST pravastatin
# JUANITA
cont P[employer]IST CPAP machine
# migraines
stable
DVT ppx: SCD
FC
Anticipated Discharge: Within 24 hours
Subjective/Interval History
-
Date of Service: October 23, 2023
Objective Data
-
Labs:
Laboratory Results
10/23/23
05:20
WBC 8.6
Hgb 13.9
Hct 41.6
Plt Count 221
PT 13.9
INR 1.09
APTT 29.4
Sodium 139
Potassium 3.9
Chloride 105
Carbon Dioxide 27
BUN 22 H
Creatinine 0.9
Glucose 128 H
Calcium 8.9
Vital Signs:
Vital Signs
Temp Pulse Resp BP Pulse Ox
36.5 C 59 10 112/75 95
10/23/23 07:30 10/23/23 07:15 10/23/23 07:15 10/23/23 07:14 10/23/23 07:15
I&O
10/22/23 10/23/23 10/24/23
06:59 06:59 06:59
Intake Total 540 / 540
Output Total 900 / 900
Balance -360 / -360
Review of Systems
-
Neuro: Reports Other (R arm clumsiness)
Physical Exam
-
General: Well Developed, Well Nourished, No Apparent Distress, Comfortable and Conversant; Negative Respiratory Distress
HEENT: Normocephalic, Atraumatic, Nose Appears Normal and Ears Appear Normal; Negative Oxygen
Respiratory: Clear to Auscultation and Non Labored Respirations; Negative Accessory Resp Muscle Use
Cardiac: Regular Rhythm and S1/S2
GI: Soft, Nontender, Nondistended and Normal Bowel Sounds
Skin: Warm and Dry
Neuro: Awake, Alert, Oriented, AO x 3 and Other (R arm clumsiness)
Psych: Calm and Intact Judgement/Insight
Data Reviewed
-
CT Scan: Report Reviewed by me
Labs: Labs Reviewed by me
[2023-10-23 08:33] LABS: Glycohemoglobin (HgbA1c) 6.6 % (4.0-5.6)
[2023-10-23] MEDS: PRAVACHOL 10 MG PO (09:36)
[2023-10-23] MEDS: NSS 500 IV ×2 (09:36→17:27)
--- NOTE | 2023-10-23 09:44 | PTCARENOTE ---
RN notified Dr. Marquez that pt's BP 99/64. Orders received to give a 500mL NSS bolus.
--- NOTE | 2023-10-23 12:00 | PTCARENOTE ---
No changes in pt assessment at this time. Will continue to monitor.
--- NOTE | 2023-10-23 13:08 | PTOTSP ---
SPEECH THERAPY SWALLOW EVALUATION:
Patient exhibits oropharyngeal swallow function WFL, with no signs or symptoms of aspiration noted at this time. Recommend Regular texture diet, thin liquids. Medications whole with liquids. Swallow therapy is not indicated at this time. Recommend
sign off swallow therapy. ST to monitor MRI and determine indication for formal Speech, Language, Cognitive Communication Evaluation; however, informal assessment indicated no overt speech/language/cognitive communication impairments at this time;
Patient reporting he feels he is at baseline level of functioning in these areas. Discussed with patient, RN, and MD.
RECOMMEND:
1) Regular texture diet, thin liquids
2) Medications whole with liquid as tolerated
3) Swallow therapy is not indicated at this time
4) ST to monitor MRI and determine indication for formal Speech, Language, Cognitive Communication Evaluation
--- NOTE | 2023-10-23 15:01 | W.PN.NEURO.1 ---
Addendum entered and electronically signed by Breann Gonzalez DO 10/23/23 16:34:
Official MRI read confirms no hemorrhage, presence of stroke. Starting on dual antiplatelet therapy now. He should continue this for 21 days and then discontinue Plavix and continue aspirin 81 mg daily indefinitely.
Original Note:
Today's Communication / Plan
-
ok for transfer out of ICU if offical read of MRI brain shows no hemorrhagic conversion
ASA can be resumed if official read of MRI brain shows no hemorrhagic conversion
increase pravastatin dose
echo
Neuro Assessment/Plan
Assessment
�YANN WEBBER is a 68 year old M who has presented to the hospital with abrupt onset of R arm heaviness and diminished dexterity in the R hand that interferes with his ability to type.� He initially had RUE drift which later resolved.� He
continues to have diminished dexterity in his R hand. His symptoms are disabling, particularly as he is right handed, so he was given TNK on 10/22 at 13:41.
Differentials for the patient's presentation include:�
1. � small L hemispheric acute ischemic stroke
2. � spinal/peripheral nerve etiology/compression seems less likely given abrupt onset, lack of clear predisposing factors
3. � complicated migraine; does have a history of migraine with visual aura but has never had other focal symptoms associated; currently denies any headache
Patient has the following risk factors for their symptoms:� htn, HLD, JUANITA,� migraines, age
IV Tenecteplase/IAT candidacy: giving TNK, CTA negative for any LVO for IAT
Plan
Recommendations:�
- Patient admitted to medical ICU after IV TNK administration for frequent neuro checks and vital signs per protocol. If MRI brain read as no hemorrhagic conversion, can be transferred out to a floor bed.
- BP goal is normotension.
-� MRI of the brain not officially read by radiology yet but by my read shows a high L parietal lobe stroke; discussed with patient and his
-� CTA head/neck--no LVO.
- �ASA can be resumed if official read of MRI brain shows no hemorrhagic conversion
- Hemoglobin A1C is 6.6.�Goal blood glucose levels are less than 180 mg/dL.
- Continue pravastatin; has other statins listed as an allergy.� LDL is 85.� Will increase his dose slightly. Goal LDL after stroke is <70.
- Check an echocardiogram.
- Speech language pathology and rehabilitations evaluations today, PT/OT evaluations in 24 hours post TNK administration.
- Patient can be started on Lovenox subcutaneous for DVT prophylaxis.
- Rest of the management per the primary team
-Reviewed importance of better control of vascular risk factors with patient and . Needs f/u in our office in ~4 weeks.
Critical care time 40 mins
Subjective/Objective
Subjective Data
Date of Service: October 23, 2023
RUE heaviness resolved, R hand loss of dexterity unchanged; no new symptoms
Objective Data
Vital Signs
Temp Pulse Resp BP Pulse Ox
98.4 F 73 16 119/83 96
10/23/23 11:30 10/23/23 12:15 10/23/23 12:15 10/23/23 12:10 10/23/23 12:15
Lab Results
10/23/23 05:20
10/23/23 05:20
PT 13.9 Sec (11.4-14.6) 10/23/23 05:20
INR 1.09 10/23/23 05:20
APTT 29.4 Sec (23.4-35.0) 10/23/23 05:20
Sodium 139 mmol/L (135-145) 10/23/23 05:20
Potassium 3.9 mmol/L (3.5-5.1) 10/23/23 05:20
BUN 22 mg/dl (9-20) H 10/23/23 05:20
Glucose 128 mg/dl (70-99) H 10/23/23 05:20
Calcium 8.9 mg/dl (8.4-10.2) 10/23/23 05:20
LDL Cholesterol, Calc 85 mg/dl 10/23/23 05:20
Patient Allergies
atorvastatin [From Lipitor] Allergy (Verified 11/12/17 12:20)
ELEVATED CPK LEVELS
simvastatin [From Zocor] Allergy (Verified 11/12/17 12:20)
ELEVATED CPK LEVELS
Ejgtywt-OSD-XgD Reductase Inhibitor [Osfntbe-Lwx-Apc Reductase Inhibitor] Allergy (Verified 11/12/17 12:20)
ELEVATED CPK LEVELS
Physical Exam
-
General: Well Developed, Well Nourished and No Apparent Distress
Extended Neurological Exam
Mood & Affect: Mood Unremarkable and Affect Unremarkable
Attention Span & Concentration: Awake, Alert and Interactive
Memory: Unremarkable
Tremor: Hand Tremor Absent and Head Tremor Absent
Involuntary Movement: None
Speech: Quality Unremarkable, Quantity Unremarkable and Rate of Production Unremarkable
Cranial Nerve II: Left Eye: Pupillary Reactivity Unremarkable and Pupillary Size Unremarkable
Cranial Nerve II: Right Eye: Pupillary Reactivity Unremarkable and Pupillary Size Unremarkable
Cranial Nerves III, IV, : Extraocular Movement: Extraocular Movement Full in all Directions
Cranial Nerve V: Facial Sensation: Facial Sensation Unremarkable to Cold
Cranial Nerve VII: Facial Symmetry: Normal Facial Symmetry
Cranial Nerve VIII: Hearing: Unremarkable Hearing to Normal Conversational Volume
Cranial Nerves IX, X: Palate Movement: Palate Elevation Symmetric
Cranial Nerve XII: Tongue Protusion: Midline
Muscle Strength, Overall: Full Throughout
Deep Tendon Reflexes: Unremarkable Throughout
Cold Sensation: Unremarkable
Touch Sensation: Unremarkable
Coordination: Other (difficulty with VIRGEN/fine motor in R hand only)
Babinski Sign: Absent Bilaterally
Modified [place] Score (MRS)
-
MRS Score:
NIH Stroke Scale
NIH Stroke Score
Date of Subsequent NIH Scale: 10/23/23
Time of Subsequent NIH Scale: 14:30
Level of Consciousness: 0 - Alert
LOC Questions: 0-Answers both correctly
LOC Commands: 0-Performs both correctly
Best Horizontal Gaze: 0-Normal
Visual Peterson: 0=Normal, no visual loss
Facial Palsy: 0=Normal, symmetrical
Motor - Right Arm: 0=No drift 10 seconds
Motor - Left Arm: 0=No drift 10 seconds
Motor - Right Le-No drift 5 seconds
Motor - Left Le-No drift 5 seconds
Limb Ataxia: 1-Present in one limb
Explanation of untestable limb ataxia: R hand
Sensation: 0-Normal
Best Language: 0-No aphasia
Dysarthria: 0-Normal
Extinction and Inattention: 0-No abnormality
Total Score:: 1
[2023-10-23] MEDS: PLAVIX 75 MG PO (17:26)
[2023-10-23] MEDS: LOW STRENGTH ASPIRIN 81 MG PO (17:26)
[2023-10-24] VITALS: BP 102/77
[2023-10-24 05:22] VITALS: BMI 32.3
[2023-10-24 05:24] VITALS: BP 100/72
[2023-10-24 05:36] LABS: Hematocrit 42.4 % (39.0-52.0); Hemoglobin 14.1 g/dL (13.0-18.0); Mean Corp Hgb Conc. 33.3 g/dL (33.0-37.0); Mean Corpuscular Hgb 28.2 pg (27.0-31.0); Mean Corpuscular Volume 84.8 fL (80.0-94.0); Mean Platelet Volume 10.3 fL (7.4-10.4); Platelet Count 215 10^3/uL (130-400); Red Cell Dist. Width 13.4 % (11.5-14.5); White Blood Cell Count 8.5 10^3/uL (4.8-10.8)
[2023-10-24 05:58] LABS: Blood Urea Nitrogen 24 mg/dl (9-20); Calcium 8.7 mg/dl (8.4-10.2); Carbon Dioxide 23 mmol/L (22-30); Chloride 107 mmol/L (98-107); Estimated Creatinine Clearance 107 ml/min; Glucose 133 mg/dl (70-99); Sodium 139 mmol/L (135-145); eGFR > 60.00
[2023-10-24] MEDS: LOW STRENGTH ASPIRIN 81 MG PO (07:32)
[2023-10-24] MEDS: PLAVIX 75 MG PO (07:32)
[2023-10-24] MEDS: SYNTHROID 75 MCG PO (07:33)
[2023-10-24 07:35] VITALS: BP 100/61
[2023-10-24] MEDS: PRAVACHOL 20 MG PO (07:41)
[2023-10-24 07:46] VITALS: BP 137/83
--- NOTE | 2023-10-24 07:54 | PTCARENOTE ---
report received, assessments per work list. NIH:0, patient blood pressure 100 systolic right arm, systolic 137 on right arm. Neurologist at bedside and updated regarding blood pressure variation.
--- NOTE | 2023-10-24 08:30 | W.PN.NEURO.1 ---
Addendum entered and electronically signed by Radha Campbell MD 10/24/23 12:55:
[facility]
Original Note:
Today's Communication / Plan
-
.
Subjective/Objective
Subjective Data
Date of Service: October 24, 2023
24h events: Hypotensive down to 92/56, afebrile. Mr. Phillips reports no complaints.
EKG-NSR
Labs: LDL�85, HbA1C 6.6
PMH: HTN, DLP, IGT, hypothyroidism, polyneuropathy, JUANITA,
FH: No family history of strokes
All:HMG CoA reductase inhibitors
ROS:Constitutional: Negative. Negative for chills, fever and unexpected weight change.
HENT: Negative for ear pain, hearing loss, tinnitus and trouble swallowing.
Eyes: Negative. Negative for photophobia, pain and visual disturbance.
Respiratory: Negative for cough, choking and shortness of breath.
Cardiovascular: Negative for chest pain, palpitations and leg swelling.
Gastrointestinal: Negative for abdominal pain and vomiting.
Endocrine: Negative. Negative for cold intolerance.
Genitourinary: Negative for dysuria, flank pain and urgency.
Musculoskeletal: Negative for back pain, gait problem, neck pain and neck stiffness.
Skin: Negative for rash.
Allergic/Immunologic: Negative. Negative for immunocompromised state.
Neurological: Positive for chronic distal paresthesias
I have not seen the patient. I have discussed the case and reviewed pertinent medical history, medications, and available neuroimages and agree with treatment plan.
Psychiatric/Behavioral: Negative for behavioral problems, confusion and hallucinations.
�
�
General: Well developed. In no acute distress.
Cardio: Regular rate and rhythm without murmur. Extremities are without cyanosis or edema.
Neuro:
Mental Status: Alert, oriented to person, place, and date.� Normal attention and recall.� Good fund of knowledge. Follows complex requests across the midline.� Comprehension, naming, and repetition intact.� Immediate and delayed recall 3/3.
Cranial Nerves: Unable to visualize optic discs due to insufficient dilatation. Pupils are equally round and reactive to light.� EOMs full.� Visual steve full to confrontation.� No ptosis.� No nystagmus.� V1-V3 intact to light touch and pinprick
bilaterally, symmetric.� Face symmetric.� Normal hearing AU.� The palate elevated well.� SCMs and traps 5/5.� Tongue midline.� No dysarthria.
Motor:������� Normal bulk and tone.� No pronator or arm drift.� Strength 5/5 throughout. No clonus.
Reflexes:������������ 2+ throughout the upper extremities and knees.� 2/2 in AJs. Plantar responses flexor bilaterally.
Sensory:���� Normal vibration at the toes
Coordination: No dysmetria or tremor.�
Gait:���������� deferred
�
Assessment and Plan:
�
�I. Acute right MCA therapy stroke. Likely etiology cardioembolic. S/p TNK therapy at 13: 50 on 10/22/2023.
�II. HTN
III. DLP
-Continue Telemetry monitoring.
-TTE, if unremarkable-please proceed with SUNNI.
-ASA 81 mg QD indefinitely.
-Plavix 75 mg QD for 21 days.
-Continue Pravastatin 20 mg QHS( intolerant to other statins). LDL goal<70.
-Cardiology consult if TTE is unremarkable for SUNNI, loop recorder
-Loop recorder if no events of Telemetry and normal SUNNI.
-PT.
-DVT prophylaxis.
I personally reviewed all radiology and labs along with past medical records pertinent to current medical problems.
�
Thank you for allowing us to participate in the care of this patient. We will continue to follow. Please do not hesitate to contact us with any questions or concerns.
Objective Data
Vital Signs
Temp Pulse Resp BP Pulse Ox
36.6 C 64 13 137/83 98
10/24/23 07:56 10/24/23 07:48 10/23/23 17:00 10/24/23 07:46 10/24/23 05:00
Lab Results
10/24/23 05:01
10/24/23 05:01
PT 13.9 Sec (11.4-14.6) 10/23/23 05:20
INR 1.09 10/23/23 05:20
APTT 29.4 Sec (23.4-35.0) 10/23/23 05:20
Sodium 139 mmol/L (135-145) 10/24/23 05:01
Potassium 4.0 mmol/L (3.5-5.1) 10/24/23 05:01
BUN 24 mg/dl (9-20) H 10/24/23 05:01
Glucose 133 mg/dl (70-99) H 10/24/23 05:01
Calcium 8.7 mg/dl (8.4-10.2) 10/24/23 05:01
LDL Cholesterol, Calc 85 mg/dl 10/23/23 05:20
Patient Allergies
atorvastatin [From Lipitor] Allergy (Verified 11/12/17 12:20)
ELEVATED CPK LEVELS
simvastatin [From Zocor] Allergy (Verified 11/12/17 12:20)
ELEVATED CPK LEVELS
Dqrjztu-EPJ-XiJ Reductase Inhibitor [Tsmgycn-Rwg-Gfq Reductase Inhibitor] Allergy (Verified 11/12/17 12:20)
ELEVATED CPK LEVELS
Modified Rita Score (MRS)
-
MRS Score:
--- NOTE | 2023-10-24 08:37 | W.PN.HOSP.TC ---
Today's Communication/Plan
-
consult cards
SUNNI
Assessment / Plan
Assessment / Plan
pt is a 68 year old male
acute CVA--confirmed by MRI (12 mm focus of acute/subacute nonhemorrhagic infarct in the posterior left frontal lobe at the vertex)--presented as Right arm heaviness--s/p TNK (CT head No acute intracranial process/CT head/neck Angio WNL , no
dissection, no stenosis)--asa/plavix for 21 days then asa alone--await therapy to see what needs at d/c--LDL 85, increase pravastatin per neuro--apprec input--appears to need SUNNI per neuro--consult cards
essential HTN-- cont meds as able
HDL--LDL at 85-- increase pravastatin per neuro
JUANITA--cont STRADDLE BUG CPAP machine
migraines--stable
DVT ppx: SCD
code status -- FC
Anticipated Discharge: Today
Subjective/Interval History
-
Date of Service: October 24, 2023
pt still seems to have some right hand dexterity issues
Objective Data
-
Labs:
Laboratory Results
10/24/23
05:01
WBC 8.5
Hgb 14.1
Hct 42.4
Plt Count 215
Sodium 139
Potassium 4.0
Chloride 107
Carbon Dioxide 23
BUN 24 H
Creatinine 0.8
Glucose 133 H
Calcium 8.7
Vital Signs:
max temp for 24 hours
10/23/23
11:30
Temp 98.4 F
Vital Signs
Temp Pulse Resp BP Pulse Ox
97.8 F 64 13 137/83 98
10/24/23 07:56 10/24/23 07:48 10/23/23 17:00 10/24/23 07:46 10/24/23 05:00
I&O
10/23/23 10/24/23 10/25/23
06:59 06:59 06:59
Intake Total 540 / 540 1340 / 1340
Output Total 900 / 900
Balance -360 / -360 1340 / 1340
Review of Systems
-
All other systems: Reviewed and negative
Physical Exam
-
General: Well Developed, Well Nourished and No Apparent Distress
HEENT: Normocephalic and Atraumatic; Negative Oxygen
Respiratory: Clear to Auscultation; Negative Wheezes or Rhonchi
Cardiac: Regular Rhythm and S1/S2; Negative Murmur
GI: Soft, Nontender, Nondistended and Normal Bowel Sounds
Musculoskeletal: No Clubbing, No Cyanosis and No Edema
Skin: Warm
Neuro: Awake
Psych: Calm
--- NOTE | 2023-10-24 08:37 | CM ---
Patient seen at bedside with physician. Patient states that he lives with his in a 2 story home. Patient has a CPAP machine at home and has no other DME. Patient states that his PCP Dr. Pimentel and he uses the [facility] in [place] for
pharmacy needs. Patient was previously independent of ADL's and IADL's. Patient indicated that he would follow up with PCP. CM will continue to follow for discharge planning needs.
Plan; home with possible outpatient therapy pending assessment
--- NOTE | 2023-10-24 09:01 | CON.CAR ---
Addendum entered and electronically signed by Trent Coyle MD 10/24/23 10:39:
I saw and examined the patient.
The [employer]'s note was reviewed and I agree with the note.
Comment: 65-year-old gentleman with past medical history of hypertension, hyperlipidemia, hypothyroidism and JUANITA on CPAP presented with CVA. Currently he is feeling much improved. Mild issues with dexterity in the right hand but otherwise feeling
much better. Critical care nursing concerned about unequal blood pressures in his arms. Overall, he is feeling well. On exam, he has a regular rate and rhythm with a normal S1-S2 no murmurs or gallops were appreciated lungs were clear to
auscultation. I asked Dr. Jj to review the images, there was no evidence of subclavian stenosis. Neurology is concern for cortical embolic CVA, she for SUNNI today for recorder implantation should be no etiology found on SUNNI. Meanwhile he will
continue to risk factor reduction. He may need zetia added in the outpatient or [id number] to get to goal LDL <70.
Original Note:
Consultation
Consultation Request
Date/Time Consultation Requested: 10/24/23 08:30
Date/Time Consultation Performed: 10/24/23 09:00
Requesting Provider: Dr. Alvarez
Performing Provider: SAVANNA Dempsey for Dr. Coyle
Reason for Consultation: CVA
Medical History
-
Chief Complaint: Right arm weakness
History of Present Illness:
Héctor Phillips is a 68-year-old male (known to Dr. Coyle, his primary adoption agent), with hypertension, dyslipidemia, mildly dilated ascending aorta, hypothyroidism, and JUANITA on CPAP who presented to the emergency department 10/22/2023 with a
chief complaint of right arm heaviness/weakness. He reported associated difficulty with coordination. This started acutely at home. CTA did not show any evidence of large vessel occlusion for IAT. CTA did confirm acute right MCA stroke.
Neurology believes the etiology is cardioembolic. Cardiology was consulted for SUNNI and consideration of ILR.
Past Medical History
Past Medical History: HTN, Hypercholesterolemia, Hypothyroidism and Other (JUANITA on CPAP, mildly aorta)
Social History
Tobacco: Non-Smoker
Alcohol: Occasional (Social)
Drug: None
Employment: Retired
Family History
Family History: Reviewed & Not Pertinent
Allergies / Home Medications
Allergy/AdvReac Type Severity Reaction Status Date / Time
atorvastatin [From Lipitor] Allergy ELEVATED Verified 11/12/17 12:20
CPK LEVELS
simvastatin [From Zocor] Allergy ELEVATED Verified 11/12/17 12:20
CPK LEVELS
Ojdcubn-WTG-FvD Reductase Allergy ELEVATED Verified 11/12/17 12:20
Inhibitor CPK LEVELS
[Jizedaa-Fjc-Wjk Reductase
Inhibitor]
Medication Instructions Recorded Confirmed Type
amlodipine 10 mg-valsartan 320 mg 1 tab PO DAILY Blood Pressure 11/12/17 10/22/23 History
tablet (Exforge)
aspirin 81 mg chewable tablet 81 mg PO DAILY Blood Clot 11/12/17 10/22/23 History
Prevention/Tx
glucosamine OAw-E6-Ssrpekpvq 1 ea PO BID Supplement 11/12/17 10/22/23 History
mckenzie 1,500 mg-400 unit-100 mg
tablet (Osteo Bi-Flex (5-Loxin))
levothyroxine 75 mcg tablet 75 mcg PO DAILY@07 Thyroid 11/12/17 10/23/23 History
multivitamin 1 ea PO DAILY Supplement 11/12/17 10/22/23 History
pravastatin 10 mg tablet 10 mg PO DAILY High Cholesterol 11/12/17 10/22/23 History
Review of Systems
-
History Source: Patient
All other systems: Negative unless noted
Cardiac: No Symptoms
Abdomen/GI: No Symptoms
: No Symptoms
Neurological: Weakness
Physical Exam
Vital Signs
Temp Pulse Resp BP Pulse Ox
97.8 F 64 13 137/83 98
10/24/23 07:56 10/24/23 07:48 10/23/23 17:00 10/24/23 07:46 10/24/23 07:45
Lab Results
10/24/23 05:01
10/24/23 05:01
Physical Exam
General: Well Developed, Well Nourished, No Apparent Distress and Comfortable
HEENT: Normocephalic, Anicteric and Moist Mucous Membranes
Respiratory: Clear
Cardiac: S1/S2 and Regular Rhythm
Breast: Deferred by me
GI: Soft, Non Tender, Non Distended and Normal Bowel Sounds
Rectal: Deferred by Provider
Genito-urinary: No Costovertebral Tender
Musculoskeletal: No Clubbing, No Cyanosis and No Edema
Skin: Warm
Neuro: AO x 3
Hematologic/Lymphatic: No Lymphadenopathy
Psych: Calm
Impression / Plan
-
Acute right MCA stroke
-TNK given 10/22/2023, now on DAPT (ASA and clopidogrel) for 21 days with ASA indefinitely per neurology
-Echocardiogram today
-SUNNI/ILR if unremarkable
Hypertension, goal normotension per neurology
Mildly dilated ascending aorta (3.8cm)
Dyslipidemia, he had elevated CPKs with rosuvastatin and atorvastatin, escalate pravastatin, goal LDL <70
Carotid atherosclerosis, seen on prior imaging, <50% stenosis bilaterally per CTA
Prediabetes, HgbA1c now 6.6%
JUANITA, endorses CPAP compliance
Data Reviewed
-
MRI: Report Reviewed by me (Brain: There is a 12 mm focus of acute/subacute nonhemorrhagic infarct in the posterior left frontal lobe at the vertex. Mild diffuse volume loss and moderate leukoaraiosis. Increased since the previous exam 8 years ago.)
[2023-10-24 09:12] VITALS: PULSE 75
--- NOTE | 2023-10-24 09:17 | PTOTSP ---
The patient is independent with ambulation and elevations, no strength or coordination deficits noted. No PT needs identified at this time, will sign off.
--- NOTE | 2023-10-24 11:04 | PTCARENOTE ---
patient report called to [facility], transport to [facility] by volunteer on stretcher. report called to [facility] KATHY Leggett. belongings transported to [facility] by PCT
--- NOTE | 2023-10-24 11:54 | W.PN.UPDATE ---
Addendum entered and electronically signed by Dru Diaz MD 10/24/23 12:34:
on closer inspection of the saline contrast studies done during the SUNNI,, the second study is more consistent with PFO.
Would still proceed with loop
check US of lower extremities.
Original Note:
Update Note
Progress Note Update
SEE and examed. Reviewed procedure and risks for both SUNNI and implantable loop. Consent signed for aiden
SUNNI without clear source of CVA. Normal LVF. No significant valve abnormalities. aorta unremarkable. No thormbus in appendage. Bubble study x 3.
First was suboptimal quality with no shunting. second and third bubble study very few bubbles seen in left atrium late. appeared to be after 5 or more beats. Not clearly intracardiac shunt.
Plan for loop monitor
--- NOTE | 2023-10-24 14:09 | ITS.CL.IMPLP ---
Food Supervisor - Implant Loop
Implant Loop
Procedure Report:
Procedure: Insertion of Loop Recorder.�
Date of the procedure: 10/24/2023
Procedure Physician: Liberty Zambrano MD [facility]
Indication: Cryptogenic stroke
Description of the procedure:
Patient was brought to the holding area after informed consent was obtained from the patient. The time out was performed immediately before the procedure.
The left parasternal chest area was prepped and draped in sterile fashion with chlorhexidine prep x 3 times. Lidocaine 1% was injected subcutaneously for local anesthesia. The loop recorder was tunneled and then injected into the subcutaneous
tissue. The tunneling tool was removed leaving the loop recorder in place. The dermis was closed with 4-o monocryl suture followed by steristrips and a pressure Tegaderm dressing was placed. There were no immediate complications.
Post procedure, the device was interrogated and showed good detectable P and R waves.
There were no immediate complications.
Device:
LINQII; Model: [id number]; Serial #:[id number]
R wave amplitude: 0.3 mV
Final Programming:
��������������� Tachycardia Detection: >182 bpm for 16 beats
��������������� Bradycardia Detection: 30 bpm for 12 beats, Asystole for 5 seconds.
��������������� Atrial fibrillation detection: On with > 10 min duration
Conclusion:
Successful insertion of loop recorder.
Recommendation:
Routine post-insert loop care.
--- NOTE | 2023-10-24 15:05 | PTCARENOTE ---
Pt received from nuclear medicine via [facility]. AAOX3. Pt oriented to call light and staff.
[2023-10-24 15:08] VITALS: BP 136/74
[2023-10-24 16:27] LABS: Vitamin B12 920 pg/ml (239-931)
--- NOTE | 2023-10-24 18:42 | W.DCSUMMARY ---
Discharge Summary
Discharge Data
Date of Admission: 10/22/23
Date of Discharge: 10/24/23
-
Pending Results: No
Hospital Course
Primary care physician : Ernie Pimentel
Principal Discharge diagnosis : Acute stroke
Chronic Discharge diagnosis : Essential hypertension, hyperlipidemia, obstructive sleep apnea, migraine
Hospital Course : Patient was a 68-year-old male with a history of essential hypertension, hyperlipidemia, obstructive sleep apnea who presented with right arm heaviness and weakness with difficulty with coordination that started acutely at 11:45 AM
on the morning of admission. He was seen in consultation by neurology and was found to be a candidate for lytic therapy. He received TNK and was admitted to the intensive care unit.
Problem #1: Acute stroke. Patient did receive TNK as mentioned and symptoms did improve. MRI confirmed a 12 mm focus of acute to subacute nonhemorrhagic infarct in the posterior left frontal lobe at the vertex. He was seen in consultation by
neurology. CAT Scan of the Head as well as CT scan angiography of the head and neck all were within normal limits. There was no dissection and no stenosis. Patient was started on aspirin and Plavix which he should continue for 21 days. LDL was
found to be 85 and pravastatin dose was increased per neurology. It was recommended that the patient have a SUNNI. Cardiology was consulted. Leg ultrasound was negative for clot. Initial echo was essentially normal followed by a second
echocardiogram with a bubble study which appeared to have evidence of a PFO. He was not a candidate for closure of this issue. Loop recorder was placed and patient should follow-up with cardiology as an outpatient.
Problem #2: All other medical issues. These include Essential hypertension, hyperlipidemia, obstructive sleep apnea, migraine. These medical issues were stable during his hospitalization. Medications were continued as able.
Patient is stable for discharge home at this time. He has been provided a prescription for outpatient occupational therapy evaluate and treat if he needed anything. He was cleared by physical therapy and had no needs. If there are any questions
regarding this dictation or his hospital stay, please not hesitate to call. Our office number is [phone].
Important imaging findings :
BRAIN MRI IMPRESSION: There is a 12 mm focus of acute/subacute nonhemorrhagic infarct in the posterior left frontal lobe at the vertex.
Mild diffuse volume loss and moderate leukoaraiosis. Increased since the previous exam 8 years ago.
HEAD AND NECK CTA IMPRESSION:
NECK CTA:
No dissection. No significant stenosis.
HEAD CTA:
No aneurysm. No filling defect or significant stenosis. Please see description above.
HEAD CT IMPRESSION:
1. � Stable exam. No acute intracranial process.
2. � Mild volume loss. Mild to moderate leukoaraiosis.
Procedure findings :
ECHO CONCLUSIONS:
�Normal biventricular size and systolic function without regional wall motion
�abnormality.
�No significant valvular disease.
�Dilated aortic root, 4.2cm.
�No significant change since the prior study of 11/09/22.
SUNNI CONCLUSIONS:
�Normal left ventricular function
�No significant valve abnormalities.
�No evidence of thrombus in the left atrial appendage.
�Saline contrast/bubble studies performed x 3 with one of the study suggesting
�PFO.
Discharge Plan
-
Patient Disposition: Home (Routine Discharge)
Discharge Diagnosis/Procedures: Right arm weakness due to acute nonhemorrhagic stroke in the posterior left frontal lobe, s/p SUNNI/linq implant, essential hypertension, hyperlipidemia, obstructive sleep apnea, mild
Condition: Good
Diet: As tolerated, Low Fat, Low Cholesterol and Low Sodium
Activity: As tolerated
Driving Restrictions: Not until seen by your Dr
Bathing Restrictions: None
Other Services: OT
Stand Alone Forms: [facility] Inst - Implanted Device
Referrals:
Sarah Wells CRNP [Specified Professional Personl] - 11/07/23 8:40 am (Post device incision check appointment)
Ernie Pimentel DO [Family Provider] - in less than 1 week
Breann Gonzalez DO [Active] - in one month
Prescriptions:
New
clopidogrel 75 mg Tablet
75 mg PO DAILY Qty: 21 0RF
Rx Instructions:
take with aspirin for 21 days then stop
pravastatin 20 mg Tablet
20 mg PO DAILY Qty: 30 0RF
Continued
multivitamin 1 EACH tablet
1 ea PO DAILY
levothyroxine 75 MCG tablet
75 mcg PO DAILY@07
aspirin 81 MG tablet,chewable
81 mg PO DAILY
amlodipine-valsartan [Exforge] 1 EACH tablet
1 tab PO DAILY
eiowfvkuvhq-R3-Bpmdhbnpf serr [Osteo Bi-Flex (5-Loxin)] 1 EACH tablet
1 ea PO BID
Discontinued
pravastatin 10 MG tablet
10 mg PO DAILY
Discharge Orders:
Discharge Patient (As Directed); Ordered 10/24/23
Ordered By: Lisy Alvarez
Discharge Date and Time
Discharge Date/Time: 10/24/23 17:58
[2023-10-28 10:13] LABS: Vitamin B1, Whole Blood 198 nmol/L (70-180)
== END 2023-10-24 17:58 | disposition home or self-care (01) | DRG 41 ==
LOC: 3 WEST ACU 14:25
PROVIDERS: Internal Medicine Cardiovascular Disease; Nurse Practitioner Family; Psychiatry & Neurology Neurology; ADMITTING PHYSICIAN Internal Medicine; ATTENDING PHYSICIAN Internal Medicine; CONSULT PHYSICIAN Internal Medicine Cardiovascular Disease; CONSULT PHYSICIAN Internal Medicine Critical Care Medicine; CONSULT PHYSICIAN Psychiatry & Neurology Neurology; EMERGENCY PHYSICIAN Emergency Medicine; FAMILY PHYSICIAN Family Medicine
PROC: 3E03317 Introduction of Other Thrombolytic into Peripheral Vein, Percutaneous Approach (ICD-10-PCS; 2023-10-22)
PROC: 5A09357 Assistance with Respiratory Ventilation, Less than 24 Consecutive Hours, Continuous Positive Airway Pressure (ICD-10-PCS; 2023-10-23)
PROC: 0JH632Z Insertion of Monitoring Device into Chest Subcutaneous Tissue and Fascia, Percutaneous Approach (ICD-10-PCS; 2023-10-24)
PROC: B24BZZ4 Ultrasonography of Heart with Aorta, Transesophageal (ICD-10-PCS; 2023-10-24)
DX: I63.511 Cerebral infarction due to unspecified occlusion or stenosis of right middle cerebral artery (principal); G81.91 Hemiplegia, unspecified affecting right dominant side; E78.00 Pure hypercholesterolemia, unspecified; G43.109 Migraine with aura, not intractable, without status migrainosus; G47.33 Obstructive sleep apnea (adult) (pediatric); I10 Essential (primary) hypertension; K21.9 Gastro-esophageal reflux disease without esophagitis; K57.90 Diverticulosis of intestine, part unspecified, without perforation or abscess without bleeding; E55.9 Vitamin D deficiency, unspecified; R76.11 Nonspecific reaction to tuberculin skin test without active tuberculosis; R73.9 Hyperglycemia, unspecified; R09.02 Hypoxemia; G47.00 Insomnia, unspecified; I95.9 Hypotension, unspecified; R91.1 Solitary pulmonary nodule; E06.3 Autoimmune thyroiditis; I65.29 Occlusion and stenosis of unspecified carotid artery; I77.810 Thoracic aortic ectasia; N28.89 Other specified disorders of kidney and ureter; Z79.82 Long term (current) use of aspirin; Z79.890 Hormone replacement therapy; Z80.42 Family history of malignant neoplasm of prostate; Z82.0 Family history of epilepsy and other diseases of the nervous system; Z82.49 Family history of ischemic heart disease and other diseases of the circulatory system; Z80.3 Family history of malignant neoplasm of breast; Z88.8 Allergy status to other drugs, medicaments and biological substances
CPT/HCPCS: 33285; 37195; 70450; 70496; 70498; 70551; 71045; 80048; 80053; 80061; 82607; 82962; 83036; 83735; 84425; 85025; 85027; 85610; 85730; 92610; 93005; 93306; 93312; 93320; 93325; 93970; 97162; 99291; C1764; J3101; Q9967

== ENCOUNTER 2023-11-02 11:28 | Outpatient (RCR) | payer MEDICARE, OTHER, SELFPAY | END 2023-11-02 23:59 | disposition home or self-care (01) | LOC: ROT 11:28 | PROVIDERS: ATTENDING PHYSICIAN Internal Medicine; FAMILY PHYSICIAN Family Medicine | DX: I67.9 Cerebrovascular disease, unspecified (principal); Z73.6 Limitation of activities due to disability | CPT/HCPCS: 96125; 97166; 97530 ==

== ENCOUNTER → 2023-11-07 09:39 | Outpatient (REF) | payer MEDICARE, OTHER, SELFPAY ==
[2023-11-07 11:20] LABS: Urine Albumin Negative (Neg - Trace); Urine Bilirubin Negative (Negative); Urine Character Clear (Clear); Urine Color Yellow; Urine Glucose Negative (Negative); Urine Ketone Negative (Negative); Urine Leukocyte Trace (Negative); Urine Nitrite Negative (Negative); Urine Occult Blood Negative (Negative); Urine Urobilinogen Negative (Neg - 1+)
[2023-11-07 11:31] LABS: Urine Mucus Many
[2023-11-07 11:33] LABS: Urine Hyaline Cast 0-2 /LPF (0-2); Urine Red Blood Cell 0-2 /HPF (0-2)
[2023-11-07 11:55] LABS: ALT (SGPT) 23 U/L (0-50); AST (SGOT) 22 U/L (17-59); Alkaline Phosphatase 65 U/L (38-126); Blood Urea Nitrogen 20 mg/dl (9-20); Calcium 9.3 mg/dl (8.4-10.2); Carbon Dioxide 27 mmol/L (22-30); Chloride 104 mmol/L (98-107); Glucose 120 mg/dl (70-99); HDL Cholesterol 45 mg/dl; LDL Cholesterol, Calculated 92 mg/dl; Potassium 4.4 mmol/L (3.5-5.1); Sodium 142 mmol/L (135-145); Total Bilirubin 0.5 mg/dl (0.2-1.3); Total Cholesterol 165 mg/dl (50-199); Triglyceride 142 mg/dl (10-149); Very Low Density Lipoprotein 28 mg/dl (0-30); eGFR > 60.00
[2023-11-07 12:09] LABS: Glycohemoglobin (HgbA1c) 6.8 % (4.0-5.6)
[2023-11-07 12:11] LABS: % Basophils 0.5 % (0-2); % Eosinophils 3.2 % (0-6); % Immature Granulocytes 0.2 % (0-0.5); % Lymphocytes 26.4 % (20.5-51.1); % Monocytes 7.1 % (1.7-9.3); % Neutrophils 62.6 % (42.2-75.2); Absolute Eosinophils 0.3 10^3/uL (0-0.7); Absolute Lymphocytes 2.2 10^3/uL (1.2-3.4); Absolute Monocytes 0.6 10^3/uL (0.1-0.6); Absolute Neutrophils 5.1 10^3/uL (1.4-6.5); Hematocrit 44.6 % (39.0-52.0); Hemoglobin 14.9 g/dL (13.0-18.0); Mean Corp Hgb Conc. 33.4 g/dL (33.0-37.0); Mean Corpuscular Hgb 28.2 pg (27.0-31.0); Mean Corpuscular Volume 84.5 fL (80.0-94.0); Mean Platelet Volume 10.5 fL (7.4-10.4); Nucleated Red Blood Cells % 0 % (-); Platelet Count 241 10^3/uL (130-400); Red Blood Cell Count 5.28 10^6/uL (4.70-6.10); Red Cell Dist. Width 13.7 % (11.5-14.5); White Blood Cell Count 8.2 10^3/uL (4.8-10.8)
[2023-11-07 12:28] LABS: PSA, Total - Screen 1.55 ng/ml (0.0-4.0); TSH 4.26 uIU/ml (0.47-4.68)
== END ==
LOC: REG 09:39
PROVIDERS: ATTENDING PHYSICIAN Family Medicine
DX: Z00.00 Encounter for general adult medical examination without abnormal findings (principal); R73.01 Impaired fasting glucose; E03.8 Other specified hypothyroidism; E78.2 Mixed hyperlipidemia; Z12.5 Encounter for screening for malignant neoplasm of prostate
CPT/HCPCS: 36415; 80053; 80061; 81003; 81015; 83036; 84443; 85025; G0103

== ENCOUNTER 2023-11-23 10:18 | Outpatient (RCR) | payer MEDICARE, OTHER, SELFPAY | END 2023-11-23 23:59 | disposition home or self-care (01) | LOC: ROT 10:18 | PROVIDERS: ATTENDING PHYSICIAN Internal Medicine; FAMILY PHYSICIAN Family Medicine | DX: I67.9 Cerebrovascular disease, unspecified (principal); Z73.6 Limitation of activities due to disability | CPT/HCPCS: 97129; 97130; 97530; 97535 ==

== ENCOUNTER → 2023-12-13 13:02 | Outpatient (REF) | payer MEDICARE, OTHER, SELFPAY ==
[2023-12-13 14:40] LABS: HDL Cholesterol 52 mg/dl; LDL Cholesterol, Calculated 61 mg/dl; Total CK 154 U/L (55-170); Total Cholesterol 137 mg/dl (50-199); Triglyceride 121 mg/dl (10-149); Very Low Density Lipoprotein 24 mg/dl (0-30)
[2023-12-13 15:37] LABS: CKMB 1.9 ng/ml (0.0-2.4)
== END ==
LOC: REG 13:02
PROVIDERS: ATTENDING PHYSICIAN Psychiatry & Neurology Neurology; FAMILY PHYSICIAN Family Medicine
DX: I63.9 Cerebral infarction, unspecified (principal); T50.905S Adverse effect of unspecified drugs, medicaments and biological substances, sequela
CPT/HCPCS: 36415; 80061; 82550; 82553

== ENCOUNTER → 2024-01-09 12:50 | Outpatient (REF) | payer MEDICARE, OTHER, SELFPAY ==
[2024-01-09 14:33] LABS: % Basophils 1.2 % (0-2); % Eosinophils 10.1 % (0-6); % Immature Granulocytes 0.2 % (0-0.5); % Lymphocytes 30.6 % (20.5-51.1); % Monocytes 6.3 % (1.7-9.3); % Neutrophils 51.6 % (42.2-75.2); Absolute Basophils 0.1 10^3/uL (0-0.2); Absolute Eosinophils 0.8 10^3/uL (0-0.7); Absolute Lymphocytes 2.5 10^3/uL (1.2-3.4); Absolute Monocytes 0.5 10^3/uL (0.1-0.6); Absolute Neutrophils 4.2 10^3/uL (1.4-6.5); Hematocrit 41.4 % (39.0-52.0); Hemoglobin 14.1 g/dL (13.0-18.0); Mean Corp Hgb Conc. 34.1 g/dL (33.0-37.0); Mean Corpuscular Hgb 28.1 pg (27.0-31.0); Mean Corpuscular Volume 82.6 fL (80.0-94.0); Mean Platelet Volume 9.7 fL (7.4-10.4); Nucleated Red Blood Cells % 0 % (-); Platelet Count 254 10^3/uL (130-400); Red Blood Cell Count 5.01 10^6/uL (4.70-6.10); Red Cell Dist. Width 15.1 % (11.5-14.5); White Blood Cell Count 8.1 10^3/uL (4.8-10.8)
[2024-01-11 18:33] LABS: Protein S Total Antigen 116 % (84-134)
[2024-01-11 22:04] LABS: Anti-Xa Qualitative Interp Not Performed (Not Present); Anticoagulant Med Neutralizati Not Performed (Not Performed); Hexagonal Phospholipid Confirm Not Performed s (<=7.9); Neutralized PTT-LA Ratio Not Performed (<=1.20); Neutralized dRVTT Screen Ratio Not Performed (<=1.20); PTT-LA Ratio 0.93 (<=1.20); Prothrombin Time 12.6 s (12.0-15.5); Thrombin Time Not Performed s (<=19.5); dRVTT 1.1 Mix Ratio Not Performed (<=1.20); dRVTT Confirmation Ratio Not Performed (<=1.20); dRVTT Screen Ratio 0.83 (<=1.20)
[2024-01-12 02:30] LABS: Beta-2-Glycoprotein I Ab. IgG <10 SGU (<=20); Beta-2-Glycoprotein I Ab. IgM <10 SMU (<=20)
[2024-01-12 18:05] LABS: Cardiolipin IgA Antibody <10 APL (<=11); Cardiolipin IgM Antibody <10 MPL (<=12); Cardiolipin Igg Antibody <10 GPL (<=14)
== END ==
LOC: REG 12:50
PROVIDERS: ATTENDING PHYSICIAN Internal Medicine Hematology & Oncology
DX: D68.52 Prothrombin gene mutation (principal); D68.51 Activated protein C resistance; I63.232 Cerebral infarction due to unspecified occlusion or stenosis of left carotid arteries; D68.8 Other specified coagulation defects; D68.69 Other thrombophilia; Z82.49 Family history of ischemic heart disease and other diseases of the circulatory system; Z79.899 Other long term (current) drug therapy
CPT/HCPCS: 36415; 85025; 85305; 85610; 85613; 85730; 86146; 86147

== ENCOUNTER → 2024-03-29 10:54 | Outpatient (REF) | payer MEDICARE, OTHER, SELFPAY ==
[2024-03-29 13:05] LABS: ALT (SGPT) 31 U/L (0-50); AST (SGOT) 28 U/L (17-59); Albumin 4.2 g/dl (3.5-5.0); Alkaline Phosphatase 69 U/L (38-126); Blood Urea Nitrogen 17 mg/dl (9-20); Calcium 9.4 mg/dl (8.4-10.2); Carbon Dioxide 28 mmol/L (22-30); Chloride 104 mmol/L (98-107); Glucose 103 mg/dl (70-99); HDL Cholesterol 56 mg/dl; LDL Cholesterol, Calculated 84 mg/dl; Sodium 138 mmol/L (135-145); Total Bilirubin 0.3 mg/dl (0.2-1.3); Total Cholesterol 161 mg/dl (50-199); Total Protein 6.7 g/dl (6.3-8.2); Triglyceride 109 mg/dl (10-149); Very Low Density Lipoprotein 21 mg/dl (0-30); eGFR > 60.00
[2024-03-29 13:20] LABS: Microalbumin, Random Urine < 0.6 mg/dl (0.6-1.7)
== END ==
LOC: REG 10:54
PROVIDERS: ATTENDING PHYSICIAN Psychiatry & Neurology Neurology; FAMILY PHYSICIAN Family Medicine; REFERRING PHYSICIAN Internal Medicine Cardiovascular Disease
DX: E11.69 Type 2 diabetes mellitus with other specified complication (principal); I69.30 Unspecified sequelae of cerebral infarction; I63.9 Cerebral infarction, unspecified
CPT/HCPCS: 36415; 80053; 80061; 82043; 82570; 83036

== ENCOUNTER → 2024-11-14 10:40 | Outpatient (REF) | payer MEDICARE, OTHER, SELFPAY ==
[2024-11-14 11:23] LABS: % Basophils 0.8 % (0-2); % Eosinophils 6.8 % (0-6); % Immature Granulocytes 0.1 % (0-0.5); % Lymphocytes 27.9 % (20.5-51.1); % Monocytes 7.5 % (1.7-9.3); % Neutrophils 56.9 % (42.2-75.2); Absolute Basophils 0.1 10^3/uL (0-0.2); Absolute Eosinophils 0.5 10^3/uL (0-0.7); Absolute Lymphocytes 2.2 10^3/uL (1.2-3.4); Absolute Monocytes 0.6 10^3/uL (0.1-0.6); Absolute Neutrophils 4.5 10^3/uL (1.4-6.5); Hematocrit 42.9 % (39.0-52.0); Hemoglobin 14.6 g/dL (13.0-18.0); Mean Corpuscular Volume 82.2 fL (80.0-94.0); Mean Platelet Volume 9.5 fL (7.4-10.4); Nucleated Red Blood Cells % 0 % (-); Platelet Count 228 10^3/uL (130-400); Red Blood Cell Count 5.22 10^6/uL (4.70-6.10); Red Cell Dist. Width 15.5 % (11.5-14.5)
[2024-11-14 11:27] LABS: Urine Albumin Negative (Neg - Trace); Urine Bilirubin Negative (Negative); Urine Character Clear (Clear); Urine Color Yellow; Urine Glucose Negative (Negative); Urine Ketone Negative (Negative); Urine Leukocyte Negative (Negative); Urine Nitrite Negative (Negative); Urine Occult Blood Negative (Negative); Urine Urobilinogen Negative (Neg - 1+)
[2024-11-14 12:08] LABS: ALT (SGPT) 26 U/L (0-50); AST (SGOT) 22 U/L (17-59); Albumin 4.2 g/dl (3.5-5.0); Alkaline Phosphatase 62 U/L (38-126); Blood Urea Nitrogen 14 mg/dl (9-20); Calcium 9.7 mg/dl (8.4-10.2); Carbon Dioxide 28 mmol/L (22-30); Chloride 104 mmol/L (98-107); Glucose 103 mg/dl (70-99); HDL Cholesterol 52 mg/dl; LDL Cholesterol, Calculated 74 mg/dl; Potassium 4.5 mmol/L (3.5-5.1); Sodium 139 mmol/L (135-145); Total Cholesterol 148 mg/dl (50-199); Total Protein 6.8 g/dl (6.3-8.2); Triglyceride 114 mg/dl (10-149); Very Low Density Lipoprotein 22 mg/dl (0-30); eGFR > 60.00
[2024-11-14 12:26] LABS: Microalbumin, Random Urine <0.6 mg/dl (0.6-1.7)
[2024-11-14 12:40] LABS: PSA, Total - Screen 1.96 ng/ml (0.0-4.0); TSH 3.71 uIU/ml (0.47-4.68)
[2024-11-14 13:04] LABS: Glycohemoglobin (HgbA1c) 5.9 % (4.0-5.6)
== END ==
LOC: REG 10:40
PROVIDERS: ATTENDING PHYSICIAN Family Medicine; REFERRING PHYSICIAN Internal Medicine Cardiovascular Disease
DX: Z99.89 Dependence on other enabling machines and devices (principal); E78.2 Mixed hyperlipidemia; E03.8 Other specified hypothyroidism; E11.69 Type 2 diabetes mellitus with other specified complication; Z00.00 Encounter for general adult medical examination without abnormal findings; Z12.5 Encounter for screening for malignant neoplasm of prostate
CPT/HCPCS: 36415; 80053; 80061; 81003; 82043; 82570; 83036; 84443; 85025; G0103